=== PATIENT | male | born 1955 | race African-American/Black ===

== ENCOUNTER 2018-06-06 02:09 | Inpatient (IN) | payer MEDICAID, MEDICARE ==
[~2018-06-06] VITALS: Ht 182.9 cm; Wt 103.4 kg
[2018-06-06 02:16] VITALS: Ht 182.9 cm; Wt 103.4 kg
[2018-06-06 02:43] LABS: BASOPHIL % 0.4 % (0-2); PLATELET COUNT 175 x10^3mcL (130-400); RED CELL DISTRIBUTION WIDTH 14.1 % (11.5-14.5)
[2018-06-06 03:18] LABS: T3 TOTAL 0.88 ng/mL
[2018-06-06 03:22] LABS: BILIRUBIN TOTAL 0.4 mg/dL (0.20-1.00); CALCIUM 7.6 mg/dL (8.5-10.1); CARBON DIOXIDE 20.7 mmol/L (21-32); CREATININE SERUM 1.5 mg/dL (0.7-1.3); TOTAL PROTEIN, SERUM 6.8 g/dL (6.4-8.2)
[2018-06-06 03:24] LABS: ALBUMIN 3.1 g/dL (3.4-5.0)
[2018-06-06 03:35] LABS: C REACTIVE PROTEIN 0.3 mg/dL (<=0.9)
[2018-06-06 03:46] LABS: FREE T4 0.91 ng/dL (0.76-1.46); FREE THYROXINE INDEX 1.2 ug/dL (1.4-4.5); T4(THYROXINE) 3.5 ug/dL (4.7-13.3)
[2018-06-06 03:54] LABS: ERYTHROCYTE SED RATE 28 mm/hr (0-20)
[2018-06-06] MEDS ORDERED: GABAPENTIN400 M1 PO (04:30)
[2018-06-06 04:31] LABS: CHOLESTEROL/HDL RATIO 3.7; MAGNESIUM 1.8 mg/dL (1.8-2.4); PHOSPHOROUS 4.6 mg/dL (2.5-4.9)
[2018-06-06] MEDS ORDERED: CARBATROL PO (04:31)
[2018-06-06] MEDS ORDERED: ALBUTEROL0.63 MG/3 NEB (04:32)
[2018-06-06] MEDS ORDERED: ENALAPRIL MALEA20 MG (05:03)
[2018-06-06] MEDS ORDERED: AMLODIPINE BESYL5 M2 (05:03)
[2018-06-06] MEDS ORDERED: BACLOFEN20 MG (05:03)
[2018-06-06 05:12] VITALS: BP 141/67
[2018-06-06 07:19] LABS: UA SPECIFIC GRAVITY >=1.030 (1.005-1.035); microscopic required? YES; urine erythrocyte TRACE (NEGATIVE)
[2018-06-06 08:52] LABS: AMPHETAMINE QUAL UR NONE DETECTED (See below)
[2018-06-06 09:10] VITALS: BP 133/82
[2018-06-06 13:22] VITALS: BP 122/89
[2018-06-06 16:43] VITALS: BP 120/69
[2018-06-06 21:14] VITALS: BP 122/80
[2018-06-07 05:31] VITALS: BP 124/83
[2018-06-07 06:47] LABS: CALCIUM 8.4 mg/dL (8.5-10.1); CARBON DIOXIDE 26.9 mmol/L (21-32); CREATININE SERUM 1.5 mg/dL (0.7-1.3); POTASSIUM SERUM 3.5 mmol/L (3.5-5.1)
[2018-06-07 07:00] LABS: BASOPHIL % 0.6 % (0-2); PLATELET COUNT 188 x10^3mcL (130-400); RED CELL DISTRIBUTION WIDTH 14.4 % (11.5-14.5)
[2018-06-07 09:19] VITALS: BP 108/68
[2018-06-07 13:51] VITALS: BP 156/72
[2018-06-07 18:01] VITALS: BP 115/67
[2018-06-07 20:39] VITALS: BP 120/64
[2018-06-08 06:00] VITALS: BP 134/95
[2018-06-08 06:17] LABS: BASOPHIL % 0.6 % (0-2); PLATELET COUNT 213 x10^3mcL (130-400); RED CELL DISTRIBUTION WIDTH 13.9 % (11.5-14.5)
[2018-06-08 06:47] LABS: CALCIUM 8.5 mg/dL (8.5-10.1); CARBON DIOXIDE 26.9 mmol/L (21-32); CREATININE SERUM 1.4 mg/dL (0.7-1.3); POTASSIUM SERUM 3.6 mmol/L (3.5-5.1)
[2018-06-08 09:22] VITALS: BP 120/76
[2018-06-08 12:41] VITALS: BP 133/79
[2018-06-08 17:04] VITALS: BP 132/69
[2018-06-08 21:30] VITALS: BP 127/74
[2018-06-09 05:54] VITALS: BP 120/81
[2018-06-09 05:58] LABS: PLATELET COUNT 215 x10^3mcL (130-400)
[2018-06-09 06:25] LABS: CALCIUM 8.6 mg/dL (8.5-10.1); CARBON DIOXIDE 27.7 mmol/L (21-32); CREATININE SERUM 1.3 mg/dL (0.7-1.3); POTASSIUM SERUM 3.5 mmol/L (3.5-5.1)
[2018-06-09 09:39] VITALS: BP 120/82
[2018-06-09] MEDS ORDERED: TOP50 PO (09:42)
[2018-06-09] MEDS ORDERED: ZES5 PO (09:43)
[2018-06-09] MEDS ORDERED: ECO81 PO (09:44)
[2018-06-09] MEDS ORDERED: GABAPENTIN400 M1 PO (09:45)
[2018-06-09] MEDS ORDERED: L40 PO (09:46)
[2018-06-09] MEDS ORDERED: ALBUTEROL0.63 MG/3 NEB (09:50)
[2018-06-09] MEDS ORDERED: LEVAQUIN750 MG PO (09:52)
[2018-06-09 11:27] VITALS: BP 120/82
[2018-06-09 13:27] VITALS: BP 134/88
== END 2018-06-09 16:00 | disposition home or self-care (01) | DRG 139 ==
LOC: ED 02:09 → DU 03:39
PROVIDERS: Family Medicine; Specialist
DX: J18.9 Pneumonia, unspecified organism (principal); N17.0 Acute kidney failure with tubular necrosis; I50.43 Acute on chronic combined systolic (congestive) and diastolic (congestive) heart failure; E44.0 Moderate protein-calorie malnutrition; I11.0 Hypertensive heart disease with heart failure; I25.5 Ischemic cardiomyopathy; J44.1 Chronic obstructive pulmonary disease with (acute) exacerbation; M48.04 Spinal stenosis, thoracic region; Z79.82 Long term (current) use of aspirin; Z68.29 Body mass index [BMI] 29.0-29.9, adult; F17.210 Nicotine dependence, cigarettes, uncomplicated; Z91.19 Patient's noncompliance with other medical treatment and regimen
CPT/HCPCS: 83880; 84439; J1650; J1940; J1956; J2704; J7613; J7620; J7626; J7644; Q0092

== ENCOUNTER 2019-01-10 15:28 | Inpatient (IN) | payer OTHER, MEDICARE ==
[~2019-01-10] VITALS: Ht 182.9 cm; Wt 111.0 kg
[~2019-01-10 15:28] MED LIST: ALBUTEROL0.63 MG/3 NEB; AMLODIPINE BESYL5 M2; BACLOFEN20 MG; CARBATROL PO; ECO81 PO; ENALAPRIL MALEA20 MG; GABAPENTIN400 M1 PO; L40 PO; LEVAQUIN750 MG PO; TOP50 PO; ZES5 PO
--- NOTE | 2019-01-10 15:57 | NUR ---
PT AMBULATED FROM TRIAGE WITH STEADY GAIT. PT REPORTS SOB X 1 DAY. PER PT PT EXPERIENCED SOB AT A [facility], BYSTANDERS ATTEMPTED TO CALL 911 BUT PT REFUSED TO BE SEEN BY AMBULENCE. PICKED UP PT FROM [facility] AND TOOK PT HOME. PER PT EXPERIENCED SOB "WHEN HE WAS TRYING TO GET DRESSED. PT STATES HE HAS NO PAIN AND "THIS BED SHOULD BE FOR SOMEONE ELSE, IM NOT SICK". REASSURED AND EXPLAINED PLAN OF CARE.
--- NOTE | 2019-01-10 16:19 | NUR ---
LAB AT BEDSIDE FOR BLOOD DRAW.
[2019-01-10 16:41] LABS: BASOPHIL % 0.7 % (0-2); PLATELET COUNT 189 x10^3mcL (130-400); RED CELL DISTRIBUTION WIDTH 14.5 % (11.5-14.5)
[2019-01-10 16:49] LABS: CALCIUM 8.6 mg/dL (8.5-10.1); CHLORIDE SERUM 100 mmol/L (98-107); CREATININE SERUM 1.3 mg/dL (0.7-1.3); GFR1 59 mL/min; GLUCOSE SERUM 110 mg/dL (74-106); POTASSIUM SERUM 3.8 mmol/L (3.5-5.1); SODIUM SERUM 135 mmol/L (136-145)
[2019-01-10 17:00] LABS: ALBUMIN 3.4 g/dL (3.4-5.0); ALKALINE PHOSPHATASE 140 U/L (46-116); BILIRUBIN TOTAL 1.57 mg/dL (0.20-1.00); C REACTIVE PROTEIN 4.4 mg/dL (<=0.9); TOTAL PROTEIN, SERUM 7.6 g/dL (6.4-8.2)
--- NOTE | 2019-01-10 17:00 | NUR ---
CARDIZEM 10 MG IV GIVEN PER DR VELAZCO ORDER. NO CHANGE IN HR NOTED, HR 159.
[2019-01-10 17:03] LABS: ALT/SGPT 1090 U/L (16-63); AST/SGOT 1773 U/L (15-37)
[2019-01-10 17:10] LABS: T3 TOTAL 0.49 ng/mL
[2019-01-10 17:33] LABS: ERYTHROCYTE SED RATE 54 mm/hr (0-20)
--- NOTE | 2019-01-10 17:35 | NUR ---
PT SITTING UP IN BED, RESTING. PT INTERMITTENTLY FALLS ASLEEP. PT REPORTS NOT PAIN AT THIS TIME. PT TALKING TO AT BEDSIDE.
[2019-01-10 17:52] LABS: FREE T4 1.06 ng/dL (0.76-1.46); FREE THYROXINE INDEX 2.3 ug/dL (1.4-4.5); T4(THYROXINE) 5.8 ug/dL (4.7-13.3)
[2019-01-10 17:58] LABS: CK-MB 6.2 ng/mL (0-3.6)
--- NOTE | 2019-01-10 18:20 | NUR ---
DR VELAZCO AT BEDSIDE ATTEMPTING TO LOWER HEART RATE BY VAGAL MANEUVER, BY BLOWING INTO A STRAW. ATTEMPT UNSUCCESSFUL HR 161.
--- NOTE | 2019-01-10 18:38 | NUR ---
PT GIVEN ADENOSINE 6MG, 12MG AND THEN 12MG RAPID IVP FOLLOWED BY 20CC NS FLUSH WITH DR PRINGLE AT BEDSIDE. PT HAS BRIEF CHANGE IN HR WITH BOTH 12 MG DOSES, HR DECREASED TO 110S FOR APPROX 5 SECONDS AND THEN INCREASED BACK TO 150S. PT CONTINUES TO DENY ANY CHEST PAIN OR SOB POST ADMINSTRATION. PT AA/O X4, RESPS EVEN AND UNLABORED.
--- NOTE | 2019-01-10 19:08 | NUR ---
REPORT GIVEN TO MAGGI LOMAS.
--- NOTE | 2019-01-10 19:12 | NUR ---
REPORT RECEIVED FROM TIFFANI TAY. PT'S CARE ASSUMED AT THIS TIME.
--- NOTE | 2019-01-10 19:36 | NUR ---
US TEST BEING DONE AT [facility].
--- NOTE | 2019-01-10 20:02 | NUR ---
PT AAOX3, VSS, SPEAKS IN FULL CLEAR SENTENCES. BREATHING EASY AND UNLABORED. NO CHANGE IN HR AT THIS TIME (HR 152-153)/ CARDIZEM DRIP AND HEPARIN DRIP STARTED. BP 110/83.
--- NOTE | 2019-01-10 20:07 | NUR ---
PT ADMITTED (ICU) - REPORT CALLED TO TRISTAN TAY. OPPORTUNITY GIVEN TO ASK QUESTIONS. PT BEING TRANSFERRED BY RESTAURANT ATTENDANT AND EMT POST COMPLETION OF BEDISDE US TEST. NO CHANGE IN HR AT THIS TIME POST CARDIZEM DRIP. BP 140/54. WILL CONTINUE TO MONITOR UNTIL TRANSFER TO ICU.
--- NOTE | 2019-01-10 20:08 | NUR ---
RECEIVED PT FROM MAGGI LOMAS FROM .
--- NOTE | 2019-01-10 20:15 | NUR ---
PT TO ICU AT THIS TIME.
[2019-01-10 20:18] LABS: MAGNESIUM 1.9 mg/dL (1.8-2.4)
--- NOTE | 2019-01-10 20:20 | NUR ---
PT ARRIVED TO ICU BED 5 ACCOMPANIED BY EMT MISA AND NURSE SPECIAL EDUCATION COORDINATOR WILBERT. PT TRANSFERRED TO ICU BED 5 ATTACHED TO FULL BILL PEDDLER AND CONTINUOUS PULSE OXIMETRY. RECEIVED PT PT AOX4 ABLE TO RESPOND TO COMMANDS, MAKE NEEDS KNOWN, GCS=15. PUPILS 3MM BRISK RESPONSE TO LIGHT BILATERALLY. NO REPORTED WEST, SPEECH CLEAR, NO FACIAL DROOP NOTED. TRACHEA MIDLINE, NO DRAINAGE TO EENT, NO EENT COMPLAINTS.LUNG SOUNDS CLEAR BILATERALLY, CHEST RISE/FALL SYMMETRIC, E/U BREATHING, NO ACUTE RESP DISTRESS, DENIES SOB AT THIS TIME, 2L NC TO PT.S1/S2 SOUNDS HEARD, CHEST WALL STABLE, NO S/S OR REPORT OF CHEST PAIN, CARDIZEM GTT @ 5MG/HR FROM ER FOR HR CONTROL, HR 152 AT THIS TIME.SKIN COLOR CONSISTENT WITH ETHNICITY, CAP REFILL <3 SEC, PULSES MODERATE X4 EXTREMITIES, TRACE EDEMA NOTED TO BLE. HEPARIN GTT @ 1710 UNITS/HR FROM ER. GEN WEAKNESS, ROM ACTIVE, NO CONTRACTURES/DEFORMITIES, PT ABLE TO TURN/REPOSITION Q2H. NO JOINT SWELLING/TENDERNESS. BEDREST AT THIS TIME.ACTIVE BOWEL SOUNDS X4 QUADRANTS, ABD SOFT/ROUND, NO BM NOTED, NO GI COMPLAINTS.PT HAS BEDSIDE URINAL, NO PENILE EDEMA/DISCHARGE NOTED.SKIN INTACT, SKIN WARM/DRY TO TOUCH. IV TO RIGHT HAND, LEFT AC, PORT PATENT NO S/S OF INFILTRATION, DRESSING CDI. NO S/S OF N/V AT THIS TIME. BED AT LOWEST SETTING, CALL LIGHT WITHIN REACH, HOB ELEVATED 30 DEGREES PER PT COMFORT, TEACHING PROVIDED ON POC AND DISEASE PROCESS. WILL CONT TO MONITOR.
--- NOTE | 2019-01-10 20:22 | NUR ---
CARDIZEM GTT TITRATED TO 10 MG/HR, HR 152 AT THIS TIME.
--- NOTE | 2019-01-10 20:36 | NUR ---
DR. TAFOYA AT BEDSIDE FOR MSE.
--- NOTE | 2019-01-10 21:00 | NUR ---
CARDIZEM GTT TITRATED TO 15 MG/HR, HR 150 AT THIS TIME.
--- NOTE | 2019-01-10 21:00 | NUR ---
HEPARIN DRIP TITRATED TO 1700 UNITS/HR FROM 1710 UNITS/HR FROM ER PER HEPARIN DRIP PROTOCOL.HEPARIN DRIP PROTOCOL INITIATED AND SIGNED BY DR. TAFOYA, VERIFIED BY 2 RNS.
[2019-01-10 21:16] VITALS: BP 111/87
--- NOTE | 2019-01-10 22:20 | NUR ---
DR. TAFOYA MADE AWARE OF PTS LACTIC OF 2.7 AT NURSING STATION.
--- NOTE | 2019-01-10 22:37 | NUR ---
SPOKE WITH PT'S SON AT THIS TIME VIA TELEPHONE, UPDATED HIM ON PT BEING IN ICU. PHONE NUMBER [phone].
--- NOTE | 2019-01-10 23:00 | NUR ---
ADELAIDA FROM RADIOLOGY AND 2 RADIOLOGY TECHS AT BEDSIDE TO ASSIST TO TRANSFER PT TO CT SCAN FOR CT ANGIO ACCOMPANIED BY MYSELF, PT ATTACHED TO FULL ADMINISTRATIVE AIDE, CONTINUOUS PULSE OXIMETRY, DR. TAFOYA MADE AWARE AT NURSING STATION OK TO TRANSFER PT.
[2019-01-10 23:35] VITALS: BP 126/78
--- NOTE | 2019-01-10 23:35 | NUR ---
PT BACK FROM CT ANGIO ACCOMPANIED BY MYSELF AND TENNIS DIRECTOR VIA [facility]. PT TRANSFERRED BACK TO ICU BED 5, NO COMPLICATIONS NOTED, IV'S INTACT AND PATENT.
[2019-01-11] VITALS (8 sets, daily range): BP systolic 98–110; BP diastolic 50–70; Ht 182.9 cm; Wt 111.0 kg
--- NOTE | 2019-01-11 00:30 | NUR ---
ADMINISTERED ADENOSINE 6MG, 12MG, 12MG WITH DR. TAFOYA AT BEDSIDE, PATIENT REMAINS ATTACHED TO FULL LOCATOR SPECIALIST AND PULSE OXIMETRY, EDUCATION PROVIDED ON MEDCATION TO PATIENT, PT COMPLIANT. HR WENT DOWN TO 143, BUT BACK AT 152 AT THIS TIME, DR TAFOYA MADE AWARE.
[2019-01-11 00:40] LABS: UA SPECIFIC GRAVITY 1.025 (1.005-1.035); microscopic required? YES; urine erythrocyte NEGATIVE (NEGATIVE)
--- NOTE | 2019-01-11 00:43 | NUR ---
DR. TAFOYA MADE AWARE OF PT'S RESULTS OF CT ANGIO, PER DR. TAFOYA CHANGE HEPARIN GTT FROM PE PROTOCOL TO HEPARIN DRIP PROTOCOL DUE TO PATIENTS ELEVATED TROPONINS. WILL CARRY OUT ORDERS.
--- NOTE | 2019-01-11 01:00 | NUR ---
HEPARIN DRIP TITRATED TO 1100 UNITS/HR PER HEPARIN DRIP PROTOCOL, VERIFIED BY 2 RNS, AND PROTOCOL SIGNED BY DR. TAFOYA AND PLACED IN CHART.
--- NOTE | 2019-01-11 01:08 | NUR ---
LAB CALLED, CRITICAL LAB VALUE LACTIC ACID OF 3.5, DR. TAFOYA MADE AWARE IN PERSON AT NURSING STATION.
[2019-01-11 01:12] LABS: AMPHETAMINE QUAL UR POSITIVE (See below)
--- NOTE | 2019-01-11 01:22 | NUR ---
RT HERNANDEZ AT BEDSIDE FOR ABG BLOOD DRAW.
--- NOTE | 2019-01-11 01:30 | NUR ---
RT ARGUETA AT BEDSIDE FOR EKG.
--- NOTE | 2019-01-11 01:35 | NUR ---
DR. TAFOYA MADE AWARE OF PT'S URINE DRUG SCREEN POSITIVE FOR AMPHETAMINES.
--- NOTE | 2019-01-11 01:38 | NUR ---
DR. BRANDT AND DR. SORENSEN AT BEDSIDE DISCUSSING WITH PT ABOUT POC AND CARDIOVERSION.
--- NOTE | 2019-01-11 01:45 | NUR ---
DR. TAFOYA MADE AWARE OF PT'S TROPONIN OF 0.163.
--- NOTE | 2019-01-11 02:35 | NUR ---
NOVELTY WORKER NICK AT BEDSIDE FOR BLOOD DRAW. PT STATING "YOU GUYS KEEP POKING ME FOR NOTHING", EDUCATED PT ON REASON FOR PTT LAB DRAW. DR. TAFOYA AT NURSING STATION MADE AWARE, PER DR. TAFOYA OK TO DRAW AM LABS AT THIS TIME
--- NOTE | 2019-01-11 02:50 | NUR ---
AD NOTED ON MONITOR HR 120'S AT THIS TIME. DR. TAFOYA MADE AWARE.
--- NOTE | 2019-01-11 02:52 | NUR ---
PT REPORTING 9/10 BACK PAIN. WILL MEDICATE PER EMAR.
[2019-01-11 03:10] LABS: BASOPHIL % 0.5 % (0-2); PLATELET COUNT 168 x10^3mcL (130-400)
[2019-01-11 03:24] LABS: RED CELL DISTRIBUTION WIDTH 14.6 % (11.5-14.5)
[2019-01-11 03:31] LABS: CALCIUM 8.2 mg/dL (8.5-10.1); CARBON DIOXIDE 20.8 mmol/L (21-32); CHLORIDE SERUM 100 mmol/L (98-107); CREATININE SERUM 1.2 mg/dL (0.7-1.3); GFR1 > 60 mL/min; GLUCOSE SERUM 108 mg/dL (74-106); MAGNESIUM 1.8 mg/dL (1.8-2.4); PHOSPHOROUS 3.5 mg/dL (2.5-4.9); POTASSIUM SERUM 3.6 mmol/L (3.5-5.1); SODIUM SERUM 135 mmol/L (136-145)
--- NOTE | 2019-01-11 03:53 | NUR ---
LAB CALLED, PTT OF 67.3, HEPARIN GTT TITRATED TO 900 UNITS/HR PER HEPARIN DRIP PROTOCOL. REDUCED INFUSION BY 200 UNITS/HR FROM 1100 UNITS/HR PER HEPARIN DRIP PROTOCOL. WILL ORDER PTT FOUR HOURS.
--- NOTE | 2019-01-11 04:08 | NUR ---
LAB CALLED, CRITICAL LAB TROPONIN OF 0.175, DR. TAFOYA MADE AWARE, PAGED.
--- NOTE | 2019-01-11 04:45 | NUR ---
RT KAY AT BEDSIDE FOR EKG.
--- NOTE | 2019-01-11 06:24 | NUR ---
PT SLEEPING BUT EASILY AROUSABLE AT THIS TIME, STATES "LET ME SLEEP". PT ATTACHED TO FULL PAIN MANAGEMENT SPECIALIST, HR 99 AT THIS TIME, CONTINUOUS PULSE OXIMETRY PT SATURATING @ 98% ON 2L NC, NO S/S OF ANY RESP DISTRESS OR CHEST PAIN AT THIS TIME WHEN ASKED. HOB ELEVATED 30 DEGREES, CALL LIGHT WITHIN REACH, BED AT LOWEST SETTING. RIGHT HAND 20G AND LEFT AC 20G PORTS PATENT, NO S/S OF INFILTRATION NOTED, DRESSING CDI, INFUSING HEPARIN @ 900 UNITS/HR, NS @ 100 ML/HR, CARDIZEM @ 15 MG/HR.
--- NOTE | 2019-01-11 07:00 | NUR ---
CARDIZEM GTT TITRATED TO 10MG/HR, HR=88.
--- NOTE | 2019-01-11 07:09 | NUR ---
DR. RANGEL AT BEDSIDE FOR MSE, SPEAKING WITH PATIENT ON POC.
--- NOTE | 2019-01-11 07:27 | NUR ---
GAVE REPORT TO MAGGI LUCIO. UPDATES GIVEN, QUESTIONS ANSWERED.
--- NOTE | 2019-01-11 07:35 | NUR ---
RECEIVED PATIENT AWAKE/ALERT IN BED, INTRODUCE TO PATIENT. NO ACUTE DISTRESS NOTED. DENIES PAIN. 2 IV SITES RH INFUSING CARDIZEM AT 10MG/HR AND LFA INFUSING HEPARIN AT 900 UNITS/HR AND NS AT 100ML/HR. TECH AT BEDSIDE PREP PATIENT FOR ABDOMEN US. CALL LIGHT IN REACH.
--- NOTE | 2019-01-11 08:01 | NUR ---
Nutrition Note: Nursing trigger received on 01/11/19, but on supervisor locomotive assessment form, no trigger was identified. Pt. admitted with admitting diagnosis Non-Stemi, Supraventricular tachycardia, and A-Flutter per H and P documentations and does not meet high risk critera. Pt. will be assessed as moderate risk with initial assessment due 01/14-01/16/19.
--- NOTE | 2019-01-11 08:07 | NUR ---
ECHOCARDIOGRAM PENDING-HAVING ULTRASOUND
--- NOTE | 2019-01-11 09:07 | NUR ---
PATIENT SLEEPING AROUSABLE, ADMINISTERED ALL PO MEDS, PATIENT TOLERATED WELL. NICOTINE PATCH TO RT SHOULDER. EXECUTIVE ADMIN AT BEDSIDE SPOKE WITH PATIENT. NEED MET. CALL LIGHT IN REACH.
--- NOTE | 2019-01-11 09:32 | NUR ---
PATIENT SLEEPING NO DISTRESS NOTED, AFIB ON MONITOR, HR 117. TECH AT BESIDE PREP FOR ECHO. LAB CALL REPORT PTT 61.8 THERAPEUTIC, NO CHANGE CONT HEPARIN DRIP AT 900 UNITS/HR. ORDER PTT IN 4HRS. PATIENT VERBALIZE WANT TO LEAVE TWICE INFORM PATIENT TO WAIT FOR DOCTOR TO SEE HIM. PATIENT AGREE.
--- NOTE | 2019-01-11 09:44 | NUR ---
PATIENT SLEEPING AT THIS TIME, HR 139 AFIB. TITRATE CARDIZEM TO 15MG/HR CONT TO MONITOR.
--- NOTE | 2019-01-11 10:07 | NUR ---
WITH SEEN PATIENT DISCUSS POC WITH PATIENT, ECHO STILL IN PROCESS. PLAN DIURESIS AND CARDIO F/U TX. PATIENT VERBALIZE "WANT TO LEAVE" PER PATIENT NOT STABLE. CONT TO MONITOR. INFORM LASIX 40MG PO GIVEN AT 0855. PER DOCTOR WILL ADJUST THE TIME.
--- NOTE | 2019-01-11 10:08 | NUR ---
DR. PERERA, DR. RICHARD, SCIENTIFIC INVESTIGATOR AND PRIMARY RN AT BEDSIDE FOR MORNING ROUNDS. PLAN OF CARE DISCUSSED. WILL CONT TO MONITOR.
--- NOTE | 2019-01-11 11:37 | NUR ---
PATIENT RESTING IN BED NO COMPLAIN, SODA GIVEN PER REQUEST. ASSISTING REPOSITION PATIENT UP IN BED. IV SITES X 2 INTACT AND PATENT. QUESTIONS ADDRESSED. CALL LIGHT AND URINAL IN REACH.
--- NOTE | 2019-01-11 12:10 | NUR ---
PATIENT AWAKEN TALKING TO , C/O THIRSTY WANT SODA. FOUND PATIENT HALLUCINATION, TRY TO GRAB SOMETHING AND TRY TO CLIMB OOB. CN WILBERT AT BEDSIDE ASSISTING TO REPOSITION PATIENT UP, C/O STOMACH TIGHT. NO PAIN. TRY TO CALM PATIENT BUT NOT SUCCESSFUL, ATIVAN 2MG IVP PER PRESENT AT BEDSIDE. ADMINISTERED ATIVAN 2MG IVP TO LFA, BP 104/50, HR 114. PATIENT STILL AGITATED AND TRY TO GET OOB. , RN AND CN AT BEDSIDE ATTEMPTING TO KEEP SAFE, SAT DROP TO 74% ON 2LNC PLACE FACE MASK INCREASE 02 TO 3L, SAT 97% CONT TO MONITOR.
--- NOTE | 2019-01-11 12:25 | NUR ---
PATIENT CONSTANTLY MOVES AROUND IN BED AND TANGLE WITH IV TUBING, CARDIZEM TURN OFF TO REMOVED THE LINE. HR 92 -93 CONTROL. BP LOW, KEEP CARDIZEM OFF.
--- NOTE | 2019-01-11 12:31 | NUR ---
HALDOL 5MG IM GIVEN PER ORDER, PATIENT STILL AGITATED AND HALLUCINATED. BP 141/71, HR 93. AFTER HALDOL PATIENT IS CALM AND SLEEPING. CONT TO MONITOR.
--- NOTE | 2019-01-11 13:21 | NUR ---
PATIENT SLEEPING AT THIS TIME, CALM. BP 107/64, HR 70, RR 20 CONT TO MONITOR.
--- NOTE | 2019-01-11 13:55 | NUR ---
PT COMBATIVE WHILE BLOOD BEING DRAWN. CONFUSED AND AGITATED. WILL ADMINISTER ATIVAN PER PRN ORDER
--- NOTE | 2019-01-11 14:47 | NUR ---
HERE TO SEEN PATIENT, RN INFORM CARDIZEM WAS TURN OFF. ON MONITOR A-FLUTTER HR 87. BP 98/72. DR. ALVARADO SPOKE WITH KWAKU AND DISCUSS POC, ECHO W/ EF 10-15%
--- NOTE | 2019-01-11 15:07 | NUR ---
PATIENT SLEEPING AT THIS TIME, REMAIN AT BEDSIDE, BP 96/72, HR 65. CONT TO MONITOR. AWARE TROP 0.[address]CASTRO TRINA DEL CID INTERVENTION, CONTROL HR WITH BETA-MICHELLE.
--- NOTE | 2019-01-11 15:32 | NUR ---
PATIENT REMAIN SLEEPING, AT BEDSIDE. PTT 41.5 REBOLUS HEPARIN 4000 UNITS IVP AND INCREASE RATE TO 1100 UNITS/HR, NEXT PTT 1930.
--- NOTE | 2019-01-11 16:57 | NUR ---
PATIENT SLEEPING AROUSABLE TO TACTILE, REPOSITION PATIENT GOT AGITATED WITH NURSES. BP 99/51, HR 65, RR 17 AFTER LASIX IVP GIVEN. CONT TO MONITOR.
--- NOTE | 2019-01-11 18:52 | NUR ---
PATIENT MORE AROUSABLE TRY TO REMOVE THE MASK, FAMILY MEMBERS CALM PATIENT DOWN AT THIS TIME. REPLACE NEW HEPARIN BAG. IV INTACT AND INFUSING WELL. CONT TO MONITOR.
--- NOTE | 2019-01-11 20:31 | NUR ---
PTT 70.4, REDUCED INFUSION FROM 1100 UNITS/HR TO 900 UNITS/HR PER HEPARIN DRIP GTT. WILL ORDER PTT FOUR HOURS FROM NOW.
--- NOTE | 2019-01-11 21:10 | NUR ---
PT AGITATED AT THIS TIME, ATTEMPTING TO GET OUT OF BED. WILL ADMINISTER ATIVAN IVP
--- NOTE | 2019-01-11 21:30 | NUR ---
PT DESATURATED TO 85%, SIMPLE MASK TITRATED TO 10L. DR TAFOYA MADE AWARE.
--- NOTE | 2019-01-11 21:55 | NUR ---
PT DESATURATED TO 84%, NON REBREATHER PLACED ON PT 15L, PT NOW SATURATING AT 98%. DR. SORENSEN CALLED AND MADE AWARE.
--- NOTE | 2019-01-11 22:00 | NUR ---
PT CONTINUES TO SATURATE 80%-85%. DR. TAFOYA AT BEDSIDE MADE AWARE.
--- NOTE | 2019-01-11 22:02 | NUR ---
DR. TAFOYA AT BEDSIDE TO ASSESS PT AND UPDATED FAMILY ON POC.
--- NOTE | 2019-01-11 22:55 | NUR ---
PER DR. BRANDT CHECK BLOOD SUGAR, BLOOD SUGAR READING SHOWS "LO", PER GIVE DEXTROSE 50MG IVP. ADMINISTERED
--- NOTE | 2019-01-11 23:10 | NUR ---
BLOOD SUGAR RECHECKED BLOOD SUGAR OF 138 AT THIS TIME, DR. BRANDT MADE AWARE AT BEDSIDE.
--- NOTE | 2019-01-11 23:15 | NUR ---
PER DR. BRANDT INTUBATE. DR. TAFOYA AT BEDSIDE
--- NOTE | 2019-01-11 23:18 | NUR ---
2318: ETOMIDATE 10 MG, ROCURONIUM 75 MG ADMINISTERED. 2322: PT INTUBATED BY DR BRANDT SUCCESSFULLY. 8.0 ETT SECURED AT 24 CM @ LL. CHEST RISE EQUAL AND SYMMETRICAL. VENT SETTINGS: AC MODE TV 550, RR 15, PEEP 5, FIO2 85%. MARY WARE AT BEDSIDE.
--- NOTE | 2019-01-11 23:20 | NUR ---
OGT INSERTED AT THIS TIME, AIR AUSCULTATED FOR PLACEMENT WITH AIR BOLUS AWAITING CHEST XRAY FOR CONFIRMATION. QUEEN CATHETER PLACED AT THIS TIME USING STERILE TECHNIQUE. IV'S INITATED TO RIGHT HAND 20G, LEFT HAND 20G, NO S/S OF INFILTRATION, PORTS PATENT.
--- NOTE | 2019-01-11 23:25 | NUR ---
PT'S PULSE OXIMETRY UNABLE TO BE READ AT THIS TIME, PTS EXTREMITIES FEEL COOL TO TOUCH, OXIMETRY PLACED TO PT'S EAR. DR. BRANDT AND DR. TAFOYA AT BEDSIDE
--- NOTE | 2019-01-11 23:30 | NUR ---
PER DR. BRANDT BOLUS 1000CC OF NS.
[2019-01-11 23:36] LABS: BASOPHIL % 0.1 % (0-2)
[2019-01-11 23:46] LABS: PLATELET COUNT 117 x10^3mcL (130-400); RED CELL DISTRIBUTION WIDTH 15.4 % (11.5-14.5)
[2019-01-11 23:49] LABS: BILIRUBIN TOTAL 3.8 mg/dL (0.20-1.00); CALCIUM 7.7 mg/dL (8.5-10.1); CREATININE SERUM 3.4 mg/dL (0.7-1.3); FREE T4 1.01 ng/dL (0.76-1.46); TOTAL PROTEIN, SERUM 6.6 g/dL (6.4-8.2)
[2019-01-11 23:53] LABS: ALBUMIN 2.8 g/dL (3.4-5.0)
[2019-01-11 23:54] LABS: CARBON DIOXIDE 8.2 mmol/L (21-32); POTASSIUM SERUM 6.1 mmol/L (3.5-5.1)
[2019-01-12] VITALS (18 sets, daily range): BP systolic 36–128; BP diastolic 25–86
--- NOTE | 2019-01-12 | NUR ---
DR. TAFOYA AND MYSELF DISCUSSING WITH RAMIN, PTS SON AND CODE STATUS AND EVENTS LEADING UP TO INTUBATION.
--- NOTE | 2019-01-12 00:01 | NUR ---
DR. TAFOYA MADE AWARE OF PT'S POTASSIUM OF 6.1 AND CO2 OF 8.2 VIA IN PERSON AT NURSING STATION.
--- NOTE | 2019-01-12 00:03 | NUR ---
PTT 52.9, NO CHANGE PER HEPARIN DRIP PROTOCOL.
--- NOTE | 2019-01-12 00:33 | NUR ---
DR. TAFOYA MADE AWARE OF PT'S CRITCAL LABS OF TROPONIN AND LACTIC ACID VIA TELEPHONE
--- NOTE | 2019-01-12 01:16 | NUR ---
RECTAL TEMP PLACED, READING 95.5 F. GAYMAR PLACED AT THIS TIME.
--- NOTE | 2019-01-12 01:34 | NUR ---
BP 43/24 MAP 33, LEVOPHED INITIATED TO 6 MCG/MIN.
--- NOTE | 2019-01-12 01:40 | NUR ---
LEVOPHED TITRATED TO 15 MCG/MIN, MAP=29
--- NOTE | 2019-01-12 01:49 | NUR ---
MAP 29, LEVOPHED TITRATED TO 25 MCG/MIN.
--- NOTE | 2019-01-12 01:55 | NUR ---
MAP=32, LEVOPHED TITRATED TO 30 MCG/MIN. DR. TAFOYA AT NURSING STATION MADE AWARE.
--- NOTE | 2019-01-12 02:00 | NUR ---
PT PLACED IN [place] AT THIS TIME. DR TAFOYA AT NURSING STATION MADE AWARE.
--- NOTE | 2019-01-12 02:02 | NUR ---
MAP 32, NEOSYNEPHRINE INITATED @ 50 MCG/MIN.
--- NOTE | 2019-01-12 02:30 | NUR ---
NEOSYNEPHIRINE TITRATED TO 75 MCG/MIN, MAP = 62.
--- NOTE | 2019-01-12 02:40 | NUR ---
MAP 29, NEOSYNEPHRINE GTT TITRATED TO 100 MCG/MIN.
--- NOTE | 2019-01-12 03:00 | NUR ---
MAP 60, NEOSYNEPHRINE TITRATED TO 125 MCG/MIN.
--- NOTE | 2019-01-12 03:15 | NUR ---
NEOSYNEPHRINE TITRATED TO 150 MCG/MIN. MAP=35
--- NOTE | 2019-01-12 03:30 | NUR ---
NEOSYNEPHRINE TITRATED TO 175 MCG/MIN. MAP=38
--- NOTE | 2019-01-12 03:45 | NUR ---
FOUND COFFEE GROUND DRAINAGE FROM T, DR TAFOYA MADE AWARE.
--- NOTE | 2019-01-12 03:49 | NUR ---
DR. SORENSEN AT BEDSIDE MADE AWARE OF PT'S COFFEE GROUND DRAINAGE FROM OGT. PER DR. TAFOYA STOP HEPARIN DRIP AT THIS TIME, HEPARIN DRIP TITRATED OFF AT THIS TIME. PER DR. TAFOYA OK TO ATTACH SUCTION TO LOW INTERMITTENT SUCTION. OGT ATTACHED TO LOW INTERMITTENT SUCTION AT THIS TIME.
--- NOTE | 2019-01-12 04:00 | NUR ---
MAP=31, NEOSYNEPRHINE TITRATED TO 200 MCG/MIN.
--- NOTE | 2019-01-12 04:15 | NUR ---
MAP 32, DR. TAFOYA MADE AWARE OF PT'S LOW BP AT THIS TIME.
--- NOTE | 2019-01-12 04:30 | NUR ---
MAP=39. NEOSYNEPRHINE TITRATED TO 225 MCG/MIN.
--- NOTE | 2019-01-12 04:36 | NUR ---
DR. TAFOYA AT BEDSIDE EXPLAINING TO FOR CONSENT OF CENTRAL LINE INSERTION, PT'S SIGNED AND PLACED IN CHART.
--- NOTE | 2019-01-12 04:40 | NUR ---
DR. TAFOYA AT BEDSIDE FOR CENTRAL LINE INSERTION.
--- NOTE | 2019-01-12 04:45 | NUR ---
VASOPRESSING INITATED @ 0.01 UNITS/MIN, MAP=33.
--- NOTE | 2019-01-12 04:52 | NUR ---
TIME OUT DONE AT THIS TIME, DOCUMENTS PLACED IN CHART.
--- NOTE | 2019-01-12 05:00 | NUR ---
MAP=33. VASOPRESSIN TITRATED TO 0.02 UNITS/MIN.
--- NOTE | 2019-01-12 05:15 | NUR ---
MAP=28, VASOPRESSIN TITRATED TO 0.03 UNITS/MIN
--- NOTE | 2019-01-12 05:15 | NUR ---
NIBP AND PULSE OXIMETRY UNABLE TO BE READ AT THIS TIME, DR TAFOYA AT BEDSIDE MADE AWARE AND DOING CENTRAL LINE INSERTION AT THIS TIME.
[2019-01-12 05:26] LABS: CREATININE SERUM 3.7 mg/dL (0.7-1.3); MAGNESIUM 2.1 mg/dL (1.8-2.4); POTASSIUM SERUM 5.5 mmol/L (3.5-5.1)
--- NOTE | 2019-01-12 05:30 | NUR ---
MAP=34, NEOSYNEPHRINE TITRATED TO 300 MCG/MIN.
--- NOTE | 2019-01-12 05:36 | NUR ---
END USER CONSULTANT AT BEDSIDE FOR CHEST XRAY
[2019-01-12 05:52] LABS: BASOPHIL % 0.1 % (0-2)
[2019-01-12 05:54] LABS: PLATELET COUNT 112 x10^3mcL (130-400); RED CELL DISTRIBUTION WIDTH 15.4 % (11.5-14.5)
--- NOTE | 2019-01-12 05:56 | NUR ---
DR. RANGEL AT BEDSIDE FOR MSE, MADE AWARE OF PT'S WBC OF 21.7
[2019-01-12 05:58] LABS: PHOSPHOROUS 10.7 mg/dL (2.5-4.9)
--- NOTE | 2019-01-12 06:00 | NUR ---
VASOPRESSIN TITRATED TO 0.04 UNITS/MIN, MAP=51.
--- NOTE | 2019-01-12 06:00 | NUR ---
MAP=51, DOPAMINE INITIATED @ 10 MCG/KG/MIN, DR. RANGEL MADE AWARE AT BEDSIDE.
--- NOTE | 2019-01-12 06:05 | NUR ---
DR. RANGEL AT BEDSIDE MADE AWARE OF PT'S POTASSIUM OF 5.5
--- NOTE | 2019-01-12 06:06 | NUR ---
DR. RANGEL MADE AWARE OF PT'S LACTIC OF 11
--- NOTE | 2019-01-12 06:30 | NUR ---
MAP=28. DOPAMINE TITRATED TO 15 MCG/KG/MIN.
--- NOTE | 2019-01-12 06:45 | NUR ---
MAP=26, DOPAMINE TITRATED TO 20 MCG/KG/MIN.
--- NOTE | 2019-01-12 07:00 | NUR ---
RECIEVED FAISAL HUDSON RN AT BEDSIDE.
--- NOTE | 2019-01-12 07:00 | NUR ---
BUE RESTRAINTS ARE OFF.
--- NOTE | 2019-01-12 07:15 | NUR ---
GAVE REPORT TO RAMEZ RN, RORO RN. UPDATES GIVEN, QUESTIONS ANSWERED.
--- NOTE | 2019-01-12 08:20 | NUR ---
JORDYN RT AT BEDSIDE FOR ABG.
--- NOTE | 2019-01-12 08:42 | NUR ---
REPORTED ABG TO DR RANGEL. AWAITING NEW ORDERS,
--- NOTE | 2019-01-12 09:39 | NUR ---
UNABLE TO SCAN AT THIS TIME. NS BOLUS ORDERED BY DR. RANGEL IS INFUSING AT 1000ML/HR PER EMAR, BOLUS IN PLACE.
--- NOTE | 2019-01-12 09:46 | NUR ---
DR. OSMAN AT BEDSIDE TO PROVIDE PLAN OF CARE,
--- NOTE | 2019-01-12 10:25 | NUR ---
RAHUL RT AT BEDSIDE READJUSTING CUFF AROUND ETT.
--- NOTE | 2019-01-12 12:05 | NUR ---
RANDOM LOOD SUGAR CHECK 204.
--- NOTE | 2019-01-12 13:30 | NUR ---
PER FLACC = 2 WITH FACIAL GRIMACING AND SQUIRMING WILL MEDICATE PER EMAR.
--- NOTE | 2019-01-12 13:30 | NUR ---
PT HAS FACIAL GRIMACING AND GAURDING WILL MEDICATE PER EMAR.
--- NOTE | 2019-01-12 13:34 | NUR ---
PT IS AGITATED, WILL MEDICATE PER EMAR.
--- NOTE | 2019-01-12 13:54 | NUR ---
ATTEMPTED TO EDUCATE THAT PT IS AGITATED AND RESTLESS ATIVAN WILL HELP, DECREASE AIGITATION, REFUSED. WHEN ASKED WHY SHE IS REFUSING, SHE STATED, " I REFUSED BECAUSE I SAID SO".
--- NOTE | 2019-01-12 14:11 | NUR ---
DR. RANGEL AT BEDSIDE EDUCATING AT BEDSIDE REGARDING PROVIDING ATIVAN FOR COMFORT. DOES NOT DEMOSTRATE LEARNING.
--- NOTE | 2019-01-12 14:25 | NUR ---
PT'S AGREE TO ADMINISTER ATIVAN IVP, GIVEN.
--- NOTE | 2019-01-12 14:41 | NUR ---
DR. ALVARADO AT BEDSIDE. PROVIDED PT. FAMILY WITH INFORMATION ON POOR PROGNOSIS. DR. ALVARADO DISCUSSED CODE STATUS WITH FAMILY. PT'S STATED THAT SHE "NEEDS TO SPEAK WITH PT'S MOTHER BEFORE MAKING A DECISION ON CODE STATUS"
--- NOTE | 2019-01-12 16:56 | NUR ---
DR BLACKMON AT BEDSIDE TO ASSESS PATIENT. DR BLACKMON DISCUSSED WITH PATIENT'S POC AND PATIENT'S POOR PROGNOSIS. ALL QUESTIONS AND CONCERNS ADDRESSED.
--- NOTE | 2019-01-12 16:57 | NUR ---
DR. BLACKMON AT BEDSIDE. REINFORCED PATIENT'S POOR PROGNOSIS AND CURRENT TREATMENT MEASURES. DR. BLACKMON ORDERED TO CONTINUE ATIVAN AND MORPHINE PRN
--- NOTE | 2019-01-12 18:16 | NUR ---
B/P 126/75 MAP 106 HR 105 LOWERED LEVOPHED FROM 30MCG/KG/MIN TO 28MCG/KG/MIN TO ACHIEVE MAP 65.
--- NOTE | 2019-01-12 18:25 | NUR ---
B/P 115/79 MAP 92 HR 110 LOWERED LEVOPHED FROM 28MCG/KG/MIN TO 26MCG/KG/MIN TO ACHIEVE MAP 65.
--- NOTE | 2019-01-12 18:58 | NUR ---
B/P 120/74 MAP 90 HR 116 LOWERED LEVOPHED FROM 28MCG/KG/MIN TO 26MCK/KG/MIN TO ACHIEVE MAP 65.
--- NOTE | 2019-01-12 19:15 | NUR ---
RECIEVED REPORT FROM MAGGI KUMAR. DISCUSEED POC. RESUMED CARE OF PT. PT INTUBATED W/ ETT 8.0. A&OX0. UNRESPONSE TO STIMULUS. FIXED PUPILS. VENTED TO AC MODE. LUNG SOUNDS DIM MIGEL. ATRIAL FLUTTER RHYTHUM. LEVO, ALYSA-SYNEPHRINE, DOPAMINE, VASOPRESSIN INFUSING. EDEMA +2 BLE. PULSES WEAK BUE, ABSENT BLE. CAP REFILL > 3 SEC. HYPOACTIVE BS. OGT TO LIS W/ COFFEE GROUND EMEMSIS. SKIN COOL. COOLING BLANKET IN PLACE. SKIN INTACT. RIJ, LHAND, LFA C/D/I NO S/S OF INFILTRATION. FAMILY @ BEDSIDE.
--- NOTE | 2019-01-12 19:52 | NUR ---
TITRATED LEVOPHED FROM 26MCG TO 22MCG PER PT MAP 100'S. WILL CONT TO MONITOR.
--- NOTE | 2019-01-12 20:20 | NUR ---
RT PNADA @ BEDSIDE. NURSING UPDATES. POC OF CARE DISCUSSED.
--- NOTE | 2019-01-12 20:36 | NUR ---
ATIVAN PRN *(SEE MAR)* ADMINISTERED PER PT AGITATION AND RESTLESSNESS. NO S/S OF AGITATION AFTER ADMINISTERED. WILL CONT TO MONITOR.
--- NOTE | 2019-01-12 20:48 | NUR ---
RT PANDA @ BEDSIDE. NOTIFIED OF INCREASED FI02 FROM 80% TO 100% PER PT POOR O2 SATURATIONS. WILL CONT TO MONITOR.
--- NOTE | 2019-01-12 20:49 | NUR ---
SPO2 NOTED AT 65%. FIO2 INCREASED TO 100%. RN AWARE. WILL MONITOR.
--- NOTE | 2019-01-12 21:00 | NUR ---
HYPER-THERMA BLANKET CHANGED FROM MANUAL MODE OF COOLING TO MONTIOR MODE PER PT TEMP 98.0. .
--- NOTE | 2019-01-12 22:17 | NUR ---
RT PANDA @ BEDSIDE. NOTIFIED DR ALEXANDRE OF INTITATED 100% FIO2 AND REQUESTED ORDERING OF ADDITIONAL ABG. AWAITING ORDERS.
--- NOTE | 2019-01-12 22:17 | NUR ---
DR WELLINGTON @ BEDSIDE. NURSING UPDATES. DISCUSSED POC. NEW ORDERS TO D/C LEVOFLAXIN ANTIBIOTIC. D/C INTIATED.
--- NOTE | 2019-01-12 22:41 | NUR ---
RT PANDA @ BEDSIDE FOR ABG. NURSING UPDATES. NOTIFIED OF PEEP INCREASED FROM 5 TO 8.
--- NOTE | 2019-01-12 23:04 | NUR ---
RT PANDA @ BEDSIDE. NURSING UPDATES. DISCUSSED ABG RESULTS. NOTIFIED OF FI02 FROM 100% TO 85%.
--- NOTE | 2019-01-12 23:05 | NUR ---
FIO2 TITRATED TO 85% DUE TO PO2 ABG RESULT OF 106.1. RN AWARE. WILL MONITOR.
[2019-01-13] VITALS (12 sets, daily range): BP systolic 65–125; BP diastolic 44–88
--- NOTE | 2019-01-13 | NUR ---
DR ALEXANDRE @ BEDSIDE. NURSING UPDATES. POC DISCUSSED. AWAITING NEW ORDERS.
--- NOTE | 2019-01-13 00:06 | NUR ---
DR ALEXANDRE MADE AWARE OF NO LABS FOR AM DRAWN. DR ALEXANDRE STATED SHE WOULD PUT ORDERS IN FOR AM LAB BLOOD DRAW.
--- NOTE | 2019-01-13 00:23 | NUR ---
RT PANDA @ BEDSIDE. NURSING UPDATES.
--- NOTE | 2019-01-13 00:27 | NUR ---
RT PANDA @ BEDSIDE. NOTIFIED OF PEEP FROM 8 TO 5.
--- NOTE | 2019-01-13 01:17 | NUR ---
PT RESTING IN BED W/ HYDRATHERMA BLANKET ON. SCLERA EDEMA STILL NOTED. PT STILL ON LEVO, ALYSA, DOPAMINE, VASOPRESSIN, SODIUM BICARB, N/S. GCS 3. UNRESPONSE TO PAINFUL STIMULUS. NO ACUTE CHANGES FROM ASSESSMENT.
--- NOTE | 2019-01-13 01:29 | NUR ---
TITRATED LEVO FROM 22MCG/HR/MIN TO 20MCG/HR MIN PER PT BP MAP 90'S TO 100. WILL CONT TO MONITOR.
--- NOTE | 2019-01-13 02:14 | NUR ---
RT PANDA @ BEDSIDE. NURSING UPDATES. NO NEW CHANGES.
--- NOTE | 2019-01-13 02:30 | NUR ---
CARDIZEM DRIP INITIATED PER PT HR 120-130'S. TITRATED TO 5MG/HR. WILL CONT TO MONITOR.
--- NOTE | 2019-01-13 03:10 | NUR ---
TITRATED CARDIZEM TO 10MG/HR FROM 5MG/HR PER PT HR IN 130'S WILL CONT TO MONITOR.
--- NOTE | 2019-01-13 03:21 | NUR ---
ATIVEN PRN *(SEE MAR)* ADMINISTERED PER PT AGITATION & RESTLESSNESS. PT MOVED UP IN BED. AFTER ADMINISTRATION NO S/S OF AGITATION. WILL CONT TO MONITOR.
--- NOTE | 2019-01-13 04:22 | NUR ---
TITRATED CARDIZEM FROM 10MG/HR TO 15MG/HR PER PT HR 120'-130'S.
--- NOTE | 2019-01-13 04:29 | NUR ---
TITRATED LEVO FROM 20MCG TO 17MCG PER PT MAP 90'S. WILL CONT TO MONITOR.
--- NOTE | 2019-01-13 04:31 | NUR ---
TITRATED DOPAMINE FROM 20MCG TO 15MCG PER PT HR. WILL CONT TO MONITOR.
--- NOTE | 2019-01-13 04:42 | NUR ---
ATIVAN ADMINISTER *(SEE MAR)* PRN FOR AGITATION. PT RESTLESS AND TRYING TO GET UP. WILL CONT TO MONITOR.
--- NOTE | 2019-01-13 04:42 | NUR ---
SUPERVISOR INSTANT POTATO PROCESSING @ BEDSIDE FOR MORNING AM LABS.
--- NOTE | 2019-01-13 05:00 | NUR ---
HYPERTHERMA BLANKET OFF PT. TEMP 98.0
[2019-01-13 05:02] LABS: MAGNESIUM 1.8 mg/dL (1.8-2.4); POTASSIUM SERUM 5.1 mmol/L (3.5-5.1)
[2019-01-13 05:07] LABS: CALCIUM 5.7 mg/dL (8.5-10.1); CREATININE SERUM 5.2 mg/dL (0.7-1.3)
[2019-01-13 05:08] LABS: PHOSPHOROUS 9.2 mg/dL (2.5-4.9)
[2019-01-13 05:27] LABS: BASOPHIL % 0.1 % (0-2); PLATELET COUNT 73 x10^3mcL (130-400); RED CELL DISTRIBUTION WIDTH 14.3 % (11.5-14.5)
--- NOTE | 2019-01-13 05:37 | NUR ---
PT BP DROPPED TO 78/40. TITRATED CARDIZEM OFF. TITRATED DOPAMINE FROM 15MCG TO 20MCG. TITRATED LEVO FROM 17MCG TO 25MCG. PT STILL UNRESPONSIVE TO PAINFUL STIMULUS. LAID PT FLAT PER BP.
--- NOTE | 2019-01-13 05:50 | NUR ---
TITRATED LEVO FROM FROM 25MCG TO 30MCG PER PT BP 65/45(62).
--- NOTE | 2019-01-13 06:10 | NUR ---
DR RANGEL @ BEDSIDE. NURSING UPDATES. DISCUSSED POC. MADE DOCTOR AWARE OF MORNING LAB VALUES OF +NA 127, BUN 34, CREAT 5.2, CA 5.7, PHOS 9.2. AWAITING NEW ORDERS.
--- NOTE | 2019-01-13 06:33 | NUR ---
PT FLAT IN BED A&OX0. UNRESPONSIVE TO PAINFUL STIMULUS OR TACTILE STIMULUS. FIXED PUPILS. AGONAL BREATHING W/ 8.0 ETT VENTED TO AC MODE FI02 85%, RATE 15, PEEP 5, VT 550. PULSES WEAK BUE & ABSENT BLE. + 2 EDEMA BUE, TRACE BLE. A FLUTTER. SKIN INTACT. ABD SOFT & ROUND. HYPOACTIVE BS. PT NPO. RIJ, L & R HAND LAC IV C/D/I. PT W/ VASOPRESSIN, DOPAMINE , LEVOPHED, ALYSA-SYNEPHRINE AT MAX DOSAGE. SODIUM BICARB @ 125ML/HR. N/S @ 10ML/HR. F/C W/ DARK JOSE RAMON POOR OUTPUT. I&O +[phone]. WILL ENDORSE TO ONCOMING NURSE
--- NOTE | 2019-01-13 07:11 | NUR ---
REPORT GIVEN TO JOSE CRUZ & JOSÉ. ALL CONERNS & QUESTIONS ADDRESSED.
--- NOTE | 2019-01-13 07:15 | NUR ---
PATIENT IN BED, REMAINED INTUBATED WITH NO SEDATION. PATIENT IS UNRESPONSIVE. MIGEL PUPILS WITH FIXED REACTION TO LIGHT BOTH SCLERA EDEMA NOTED. NO INDICATION OF PAIN OR NAUSEA/VOMITING. 8.0 ETT WAS SECURED AT 27CM AT LIPLINE. OGT WAS SECURED TO ETT; OGT WAS CONNECTED LOW INTERMITTENT SUCTION. SCANT AMOUNT OF COFFEE GROUND OUTPUT NOTED IN THE TUBE. ETT WAS CONNECTED TO VENT VIA VCV-AC MODE: FIO2 85%, RATE 15, Vt 550, PEEP 5. DIMINISHED BREATH SOUNDS BILATERALLY. TELE # 5 READS A-FLUTTER; HEART SOUNDS DISTANT. PATIENT WAS ON LEVOPHED AT 30MCG/MIN, ALYSA-SYNEPHRENE AT 300MCG/MIN, DOPAMIN AT 20MCG/KG/MIN, AND VASOPRESSIN 0.04 U/MIN. SODIUM BICARB AT 125CC/HR, AND NS AT 10CC/HR. CVC TO RIJ WITH DRESSING IN PLACE. IV SITES TO RIGHT HAND, LEFT HAND, AND LFA. QUEEN CATH TO GRAVITY DRAINING SCANT AMOUNT OF YELLOW URINE. TEMPERATURE PER RECTAL VIA GAYMAR. HEAD OF BED WAS ELEVATED. BED WAS AT LOWEST POSITION. CALL LIGHT WITHIN REACH. SIDE RAILS UP X3. THE WAS AT BEDSIDE.
--- NOTE | 2019-01-13 08:02 | NUR ---
RT [place] TITRATED FIO2 FROM 85% TO 90%.
--- NOTE | 2019-01-13 08:47 | NUR ---
DR Nain POSADA AT BEDSIDE TO ASSESS PATIENT. PATIENT'S UPDATED ON PATIENT STATUS AND IS RESISTANT TO ANY INFORMATION REGARDING PATIENT'S POOR PROGNOSIS. PATIENT'S STATED THAT SHE WANTS "EVERYTHING DONE" IN SPITE OF PATIENT'S CURRENT CONDITION AND ASKED DR POSADA TO "GO AWAY."
--- NOTE | 2019-01-13 09:21 | NUR ---
DR. PERERA AND THE TEAM WERE MAKING ROUND TO SEE THE PATIENT. DR. RANGEL AGREED TO HOLD ALL PO MEDS AND NICOTIN PATCH, WHICH WERE SCHEDULED THIS MORNING FOR THE PATIENT.
--- NOTE | 2019-01-13 10:12 | NUR ---
DR. BLACKMON AT BEDSIDE, INFORMED PATIENT AND FAMILY MEMBERS OF PATIENT'S STATUS.
--- NOTE | 2019-01-13 10:31 | NUR ---
DR. ALVARADO AT BEDSIDE, EXAMINED THE PATIENT AND UPDATED PATIENT AND FAMILY MEMBERS ON PATIENT STATUS. DR. ALVARADO ALSO DISCUSSED CODE STATUS.
--- NOTE | 2019-01-13 12:26 | NUR ---
SIFTER AND MILLER AT BEDSIDE FOR LACTIC ACID LAB DRAW.
--- NOTE | 2019-01-13 14:02 | NUR ---
PATIENT'S HR NOW [address] JUAN CARLOS ALEGRE MADE AWARE.
--- NOTE | 2019-01-13 15:05 | NUR ---
SCREEN FOR LOW JESSICA SCALE: PT'S SKIN INTACT WILL CONTINUE ALL PRESSURE INJURY PREVENTION INTERVENTIONS -TURN AND REPOSITION PATIENT Q 2H -ASSESS AND MONITOR SKIN CONDITION DURING POSITION CHANGE -OFFLOAD BILATERAL HEELS BY PLACING PILLOWS UNDER CALVES AT ALL TIMES, UNLESS OTHERWISE CONTRAINDICATED -PRESSURE REDISTRIBUTION SURFACE THERAPY -KEEP SKIN CLEAN AND DRY AT ALL TIMES
--- NOTE | 2019-01-13 16:18 | NUR ---
AT 1609: HR 43, O2 SAT 5%, RR 15, BP 38/20 (31); DR. RANGEL WAS AT BEDSIDE AND AGREED TO ADIMISTER ATROPINE 0.5MG IVP TO THE PATIENT. THE MED WAS MEDICATED TO THE PATIENT. AT 1611: HR 48, BP 49/34 (46). AT 1613; HR 48, THE SECOND DOSE OF ATROPINE 0.5MG IVP WAS ADMINISTERED TO THE PATIENT WITH WITNESS OF DR. RANGEL. AT 1615: HR BETWEEN 43 AND 47, BP 48/42 (49). THE AND VISITORS WERE AT BEDSIDE AT ALL THE TIMES.
--- NOTE | 2019-01-13 17:55 | NUR ---
1633: THE PATIENT WAS FOUND ASYSTOLE; PULSES CHECKED-NO PULSES. CODE ANTIONETTE WAS CALLED AND CPR INITIATED. 1634: FIRST DOSE OF EPI [id number] GIVEN 1637: SECOND DOSE OF EPI [id number] GIVEN 1638: BLOOD GLUCOSE CHECKED-152 1639: THIRD DOSE OF EPI [id number] GIVEN, PEA RHYTHM 1640: CODE DR. MEADE, DR. RANGEL, LADY RAO-PALLIATIVE SENIOR NP, HARRISON-WASHER BLANKET, JOSE CRUZ-RN, JOSÉ-RN, [place]-RT, KWAKU-SPOUSE, AND CODE TEAM AT BEDSIDE. 1648: CONTROL PANEL OPERATOR CRUDE UN[facility] OFFICE NOTIFIED OF , WAITING CALL BACK 1653: [facility] CONTACTED, PATIENT INFORMATION PROVIDED TO YOMAIRA WITH CASE # [id number] RELAEASE #[id number] 1708: ROSE Yadav, ADMITTING WAS NOTIFIED 1729: CONTROL PANEL OPERATOR [facility] NATHAN LINDQUIST CALLED BACK AND RELEASED PATIENT WITH . FAMILY AT BEDSIDE AWAITING EXTRACORPOREAL CIRCULATION SPECIALIST.
--- NOTE | 2019-01-13 19:11 | NUR ---
REPORT WAS GIVEN TO LAUREN SETHI RN. THE POLISHING WHEEL SETTER AND THE FAMILY ARE PRAYING AT BEDSIDE. JOSSIE WILL COMPLETE THE POSTMORTEM CARE AND PROCESS.
--- NOTE | 2019-01-13 19:18 | NUR ---
REPORT RECIEVED FROM JOSE CRUZ. NURSING UPDATES. ALL CONCERNS ADDRESSED. PT . FAMILY @ BEDSIDE. ALL CONCERNS ADDRESSED.
== END 2019-01-13 22:45 | disposition expired | DRG 720 ==
LOC: ED 15:28 → IC 19:47
PROVIDERS: Emergency Medicine; Internal Medicine; Specialist; ADMIT General Practice
PROC: 5A1945Z Respiratory Ventilation, 24-96 Consecutive Hours (ICD-10-PCS; principal; 2019-01-11)
PROC: 0BH17EZ Insertion of Endotracheal Airway into Trachea, Via Natural or Artificial Opening (ICD-10-PCS; 2019-01-11)
PROC: 02HV33Z Insertion of Infusion Device into Superior Vena Cava, Percutaneous Approach (ICD-10-PCS; 2019-01-12)
PROC: B548ZZA Ultrasonography of Superior Vena Cava, Guidance (ICD-10-PCS; 2019-01-12)
PROC: 5A12012 Performance of Cardiac Output, Single, Manual (ICD-10-PCS; 2019-01-13)
DX: A41.9 Sepsis, unspecified organism (principal); I21.4 Non-ST elevation (NSTEMI) myocardial infarction; J96.01 Acute respiratory failure with hypoxia; K72.00 Acute and subacute hepatic failure without coma; J69.0 Pneumonitis due to inhalation of food and vomit; N17.0 Acute kidney failure with tubular necrosis; K75.9 Inflammatory liver disease, unspecified; I42.7 Cardiomyopathy due to drug and external agent; E83.39 Other disorders of phosphorus metabolism; R57.0 Cardiogenic shock; R65.21 Severe sepsis with septic shock; I50.41 Acute combined systolic (congestive) and diastolic (congestive) heart failure; J80 Acute respiratory distress syndrome; E87.3 Alkalosis; J43.9 Emphysema, unspecified; E87.2 Acidosis; R34 Anuria and oliguria; I11.0 Hypertensive heart disease with heart failure; I48.92 Unspecified atrial flutter; I47.1 Supraventricular tachycardia; E87.5 Hyperkalemia; E87.1 Hypo-osmolality and hyponatremia; E83.51 Hypocalcemia; J98.11 Atelectasis; T43.621S Poisoning by amphetamines, accidental (unintentional), sequela; T40.5X1S Poisoning by cocaine, accidental (unintentional), sequela; F15.188 Other stimulant abuse with other stimulant-induced disorder; F14.188 Cocaine abuse with other cocaine-induced disorder; F17.210 Nicotine dependence, cigarettes, uncomplicated; I25.5 Ischemic cardiomyopathy; Z68.28 Body mass index [BMI] 28.0-28.9, adult; Z86.718 Personal history of other venous thrombosis and embolism
CPT/HCPCS: 31500; 36600; 82962; 83880; 84439; A4628; C9113; G0480; J0153; J0610; J0692; J0696; J1265; J1630; J1642; J1644; J1885; J1940; J1956; J2060; J2270; J2370; J2543; J3370; J3490; J7030; J7040; J7050; Q0092; Q9967